=== PATIENT | female | born 1980 | race Caucasian/White ===

== ENCOUNTER 2017-02-22 13:49 | Emergency (ER) | payer OTHER ==
--- NOTE | 2017-02-22 14:38 | EDPHY ---
H & P Time Seen by Provider: 02/22/17 14:31 HPI/ROS: Chief complaint. Vaginal bleeding HPI. 37-year-old female 5 weeks with vaginal bleeding. Patient is 8/para 1, AB 7 with 1 living child. She has polycystic ovarian syndrome and anti phospholipid syndrome. She has had a uterine septum repaired. Preeclampsia with her 1st . She notes blood on the toilet paper with wiping today. Also suprapubic abdominal cramping. Some radiation to her back. ROS Constitutional. no fever/chills, no weakness Eyes. no problems with vision ENT. no sore throat, no nasal drainage Cardiovascular. no chest pain Respiratory. no shortness of breath, no cough Abdominal. Low abdominal cramping and vaginal bleeding . no problems urinating MS. no calf pain/swelling, no neck/back pain, no joint pain Skin. no rash Lymph. no swollen glands Neuro. no headache, no dizziness, no difficulty walking or with speech Past Medical/Surgical History: Antiphospholipid antibody syndrome, asthma, preeclampsia, polycystic ovarian syndrome Social History: , nonsmoker, no alcohol Smoking Status: Never smoked Physical Exam: General Appearance: Alert well-developed female mild distress vital signs show heart rate 102 otherwise vital signs are stable Eyes: Pupils equal and round no pallor or injection. ENT, Mouth: Mucous membranes are moist. Respiratory: There are no retractions, lungs are clear to auscultation. Cardiovascular: Regular rate and rhythm. Gastrointestinal: Abdomen is soft with mild tenderness in the suprapubic and adnexal areas. No masses. Normal bowel sounds Neurological: Awake and alert, sensory and motor exams grossly normal. Skin: Warm and dry, no rashes. Musculoskeletal: Neck is supple nontender. Extremities symmetrical, full range of motion. Psychiatric: Patient is oriented X 3, there is no agitation. Constitutional: Initial Vital Signs Temperature (C) 36.4 C 02/22/17 13:51 Heart Rate 102 H 02/22/17 13:51 Respiratory Rate 98 H 02/22/17 13:51 Blood Pressure 127/73 H 02/22/17 13:51 O2 Sat (%) 98 02/22/17 13:51 O2 Delivery Mode Room Air Allergies/Adverse Reactions: Sulfa (Sulfonamide Antibiotics) Allergy (Verified 02/22/17 13:50) Home Medications: Medication Instructions Recorded Aspirin 81mg (*) 02/22/17 Medical Decision Making - Diagnostics Imaging Results: Imaging Impressions Obstetrics Ultrasound 02/22/17 15:01 Impression: Heterogeneous endometrium, with no intrauterine gestational sac, suspicious for miscarriage. Correlation with serial hCG is recommended with ultrasound follow up as clinically warranted. Findings discussed with Dr. Terrance Medeiros on 02/22/2017 at 16:20. Ultrasound reviewed by me and discussed with Dr. Santos shows no intrauterine gestational sac. Suspicious for miscarriage. Procedures: IV normal saline ED Course/Re-evaluation: Patient's blood type is A positive Re-evaluation 4:45 p.m.--patient is stable. She is receive some IV fentanyl For discomfort. Patient tells me she passed a large clot before ultrasound. This was likely the miscarriage as now gestational sac is not seen Patient and I discussed treatment plan including criteria for return importance of follow-up and further evaluation. She prefers to used a an OBGYN physician is at [facility]. We will also give her the name of local physician. She is also being seen at the [facility] service. Differential Diagnosis: Ectopic , blighted ovum, miscarriage, Rh incompatibility - Data Points Laboratory Results: Laboratory Results 02/22/17 14:40 02/22/17 14:40 02/22/17 02/22/17 02/22/17 14:40 14:40 14:40 WBC 12.46 10^3/uL H 10^3/uL (3.80-9.50) RBC 5.03 10^6/uL 10^6/uL (4.18-5.33) Hgb 14.9 g/dL g/dL (12.6-16.3) Hct 44.4 % % (38.0-47.0) MCV 88.3 fL fL (81.5-99.8) MCH 29.6 pg pg (27.9-34.1) MCHC 33.6 g/dL g/dL (32.4-36.7) RDW 13.2 % % (11.5-15.2) Plt Count 379 10^3/uL 10^3/uL (150-400) MPV 9.3 fL fL (8.7-11.7) Neut % (Auto) 62.0 % % (39.3-74.2) Lymph % (Auto) 29.0 % % (15.0-45.0) [place] % (Auto) 4.9 % % (4.5-13.0) Eos % (Auto) 3.2 % % (0.6-7.6) Baso % (Auto) 0.6 % % (0.3-1.7) Nucleat RBC Rel Count 0.0 % % (0.0-0.2) Absolute Neuts (auto) 7.72 10^3/uL H 10^3/uL (1.70-6.50) Absolute Lymphs (auto) 3.61 10^3/uL H 10^3/uL (1.00-3.00) Absolute Monos (auto) 0.61 10^3/uL 10^3/uL (0.30-0.80) Absolute Eos (auto) 0.40 10^3/uL 10^3/uL (0.03-0.40) Absolute Basos (auto) 0.08 10^3/uL 10^3/uL (0.02-0.10) Absolute Nucleated RBC 0.00 10^3/uL 10^3/uL (0-0.01) Immature Gran % 0.3 % % (0.0-1.1) Immature Gran # 0.04 10^3/uL 10^3/uL (0.00-0.10) Sodium 144 mEq/L mEq/L (135-145) Potassium 3.8 mEq/L mEq/L (3.5-5.2) Chloride 107 mEq/L mEq/L (97-110) Carbon Dioxide 24 mEq/l mEq/l (22-31) Anion Gap 13 mEq/L mEq/L (8-16) BUN 10 mg/dL mg/dL (7-23) Creatinine 0.7 mg/dL mg/dL (0.6-1.0) Estimated GFR > 60 Glucose 93 mg/dL mg/dL (70-100) Calcium 9.6 mg/dL mg/dL (8.5-10.4) Beta HCG, Quant 2472.10 mIU/mL H mIU/mL (0.00-4.83) Patient ABO/Rh A POSITIVE Medications Given: Discontinued Medications Fentanyl (Sublimaze) 100 mcg IVP EDNOW ONE Stop: 02/22/17 16:34 Last Admin: 02/22/17 16:46 Dose: 100 mcg Sodium Chloride (Ns) 1,000 mls @ 0 mls/hr IV ONCE ONE; Wide Open PRN Reason: Protocol Stop: 02/22/17 14:48 Last Admin: 02/22/17 15:02 Dose: 1,000 mls Departure - Departure Disposition: Home, Routine, Self-Care Clinical Impression: Miscarriage Condition: Good Instructions: Miscarriage (ED) Additional Instructions: Hydrocodone as needed for discomfort. Return for worsening bleeding, pain, fever. Re-evaluation at work and [place] in the next 1-2 days if not improving. Follow up with your regular physician at [facility] for re- evaluation in the next 5-7 days. Referrals: NONE *PRIMARY CARE P,. [Unknown] - As per Instructions Elizabeth Jauregui MD [Medical Doctor] - As per Instructions ALBARO WEINSTEIN H,. [Primary Care Provider] - As per Instructions
[2017-02-22] MEDS ORDERED: NS 1,000 ML IV ONE (14:47)
[2017-02-22 15:09] LABS: PLATELET COUNT 379 10^3/uL (150-400)
[2017-02-22 16:31] VITALS: RESP 16; TEMP 98.1
[2017-02-22] MEDS ORDERED: fentaNYL 100 MCG/2 ML INJ IVP ONE (16:33)
[2017-02-22] MEDS ORDERED: HYDROCOD/APAP 5/325 PREPACK#6 BTL TAKEHOME ONE (16:57)
[2017-02-22 18:22] VITALS: BP 108/66; PULSE 74; O2SAT 95
== END 2017-02-22 18:40 | disposition home or self-care (01) ==
DX: O03.9 Complete or unspecified spontaneous abortion without complication (principal); J45.909 Unspecified asthma, uncomplicated; E86.9 Volume depletion, unspecified; Z3A.01 Less than 8 weeks gestation of pregnancy
CPT/HCPCS: 96374; J3010

== ENCOUNTER → 2018-05-09 | Outpatient (CLI) | payer OTHER | LOC: FIMAGING 09:03 | PROVIDERS: ATTEND Nurse Practitioner Women's Health | DX: Z12.31 Encounter for screening mammogram for malignant neoplasm of breast (principal); Z80.3 Family history of malignant neoplasm of breast ==